=== PATIENT | female | born 1985 | race Caucasian/White ===

== ENCOUNTER 2017-05-03 23:39 | Emergency (ER) | payer SELFPAY ==
[~2017-05-03] VITALS: Ht 157.5 cm; Wt 100.0 kg
[2017-05-04] MEDS ORDERED: KETOROLAC 60MG/2ML VIAL IM ONE (03:45)
[2017-05-04] MEDS ORDERED: CYCLOBENZAPRINE 10MG TABLET PO ONE (03:45)
[2017-05-04 05:01] LABS: BASOPHILS % 0.6 % (0.0-2.0); EOSINOPHILS % 2.2 % (0.0-5.0); HEMATOCRIT. 42.6 % (36.0-48.0); HEMOGLOBIN. 14.5 g/dL (12.0-16.0); LYMPHOCYTES % 20.7 % (20.0-50.0); MEAN CORPUSCULAR HEMOGLOBIN 30.5 pg (28.0-32.0); MEAN CORPUSCULAR VOLUME 89.2 fL (81.0-99.0); MEAN PLATELET VOLUME 7.9 fl (7.4-10.4); MONOCYTES % 6.5 % (2.0-8.0); PLATELET 423 x1000/uL (130-400); RED BLOOD CELL COUNT 4.77 mill/uL (4.2-5.4)
[2017-05-04 05:17] LABS: CHLORIDE 105 mEq/L (98-107)
[2017-05-04 05:52] LABS: HCG SCREEN NEGATIVE
[2017-05-04] MEDS ORDERED: PENICILLIN V POTASSIUM 250MG TABLET PO SCH (06:00)
[2017-05-04] MEDS ORDERED: IOHEXOL-300 100 ML BOTTLE ONE (06:38)
[2017-05-04 07:18] VITALS: BP 117/80
== END 2017-05-04 08:09 | disposition home or self-care (01) ==
LOC: ER 05-04 00:38
DX: S90.31XA Contusion of right foot, initial encounter (principal); M77.31 Calcaneal spur, right foot
CPT/HCPCS: 36415; 71045; 71260; 72170; 73562; 73630; 74177; 80048; 84703; 85025; 96372; 99285; J1885; Q9967; Z7610